=== PATIENT | female | born 1980 | race Caucasian/White ===

== ENCOUNTER 2020-04-10 11:39 | Inpatient (IN) ==
[2020-04-10] MEDS: LACTATED RINGERS 1,000 ML IV SCH ×2 (12:50→19:29)
[2020-04-10 14:05] LABS: Basophils % 0.3 % (0.0-0.8); Eosinophils % 0.3 % (0.00-10.9); Hemoglobin 12.4 GM/DL (12.0-16.0); Immature Granulocytes % 0.8 %; Lymphocytes # 1.5 10*3/uL (1.4-4.0); Lymphocytes % 12.9 % (21.3-54.2); Mean Corpuscular HGB Conc 31.8 GM/DL (32-36); Mean Corpuscular Volume 95.4 FL (87-102); Mean Platelet Volume 9.4 FL (9.6-12.0); Monocytes % 3.9 % (1.7-12.7); Neutrophils % 81.8 % (38.7-73.9); Platelet Count 236 T/CUMM (130-400); Red Blood Count 4.09 MC/CUMM (3.8-5.5)
[2020-04-10 14:17] LABS: Alanine Aminotransferase 12 U/L (13-56); Alkaline Phosphatase 91 U/L (45-117); Aspartate Amino Transferase 13 U/L (0-37); Bilirubin,Total < 0.39 MG/DL (0.2-1.0); Blood Urea Nitrogen 9 MG/DL (7-18); Estimated Glom Filtration Rate 139 ML/MIN; Glucose 74 MG/DL (74-106); Osmolality,Calculated 272.7 MOS/KG (273-304); Total Protein 7.2 G/DL (6.4-8.3); Uric Acid 4.4 MG/DL (2.6-6.0)
[2020-04-10] MEDS ORDERED: TERBUTALINE 1 MG/1 ML VIAL SUBCUT ONE (16:12)
[2020-04-10] MEDS ORDERED: ONDANSETRON 4 MG/2 ML VIAL IV PRN (17:12)
[2020-04-10] MEDS ORDERED: BUTORPHANOL 2 MG/ML VIAL IV PRN (17:12)
[2020-04-10] MEDS ORDERED: LACTATED RINGERS 250 ML IV ONE (17:12)
[2020-04-10] MEDS ORDERED: LACTATED RINGERS 500 ML IV PRN (17:12)
[2020-04-10] MEDS ORDERED: ACETAMINOPHEN 325 MG TABLET PO PRN (17:12)
[2020-04-11] MEDS: OXYTOCIN/LR 20 UNIT/1,000 ML BAG IV SCH ×3 (00:37→19:20)
[2020-04-11] MEDS ORDERED: CITRIC ACID/SODIUM CITRATE 30 ML UDCUP ONE (07:16)
[2020-04-11] MEDS ORDERED: NALOXONE 0.4 MG/ML VIAL IV PRN (09:04)
[2020-04-11] MEDS ORDERED: diphenhydrAMINE 50 MG/1 ML VIAL IV PRN ×2 (09:04)
[2020-04-11] MEDS ORDERED: FAMOTIDINE 20 MG/2 ML VIAL IV ONE (09:06)
[2020-04-11] MEDS ORDERED: CITRIC ACID/SODIUM CITRATE 30 ML UDCUP PO ONE (09:06)
[2020-04-11] MEDS ORDERED: ePHEDrine 50 MG/ML VIAL ONE (09:09)
[2020-04-11] MEDS ORDERED: fentaNYL 2 MCG/ROPIV 0.2% EPID 100 ML EPIDURAL ONE (09:10)
[2020-04-11] MEDS: LACTATED RINGERS 1,000 ML IV SCH ×2 (09:13→12:15)
[2020-04-11] MEDS ORDERED: fentaNYL 2 MCG/ROPIV 0.2% EPID 100 ML EPIDURAL SCH (09:30)
[2020-04-11 11:56] LABS: Bacteria,Urine Occasional /HPF (Few); Bilirubin,Urine Negative (Negative); Blood, Urine Negative (Negative); Glucose,Urine (UA) Negative (Negative); Ketones,Urine 5 mg/dL (Negative); Mucus,Urine Occasional /LPF (Occasional); Nitrite,Urine Negative (Negative); Protein,Urine Negative; RBC,Urine 1 /HPF (0-4); Squamous Epithelial Cell,Urine Occasional /HPF (0-10); Urine Appearance CLEAR (Clear); Urine Color Yellow (Yellow); Urine Specific Gravity 1.012 (1.001-1.035); Urine Urobilinogen < 2.0 EU/DL (0.2-1.0); WBC,Urine 1 /HPF (0-6)
[2020-04-11] MEDS: ePHEDrine 50 MG/ML VIAL IV PRN ×2 (11:58→11:59)
[2020-04-11 14:28] LABS: Cord Venous Blood HCO3 21.6 MMOL/L
[2020-04-12] MEDS ORDERED: LANOLIN 50% CREAM 0.3 OZ TUBE TOP PRN (00:53)
[2020-04-12] MEDS ORDERED: BENZOCAINE 20%/MENTHOL 0.5% SPRAY 56 GM CAN TOP PRN (00:53)
[2020-04-12] MEDS ORDERED: WITCH HAZEL PADS 100/JAR TOP PRN (00:53)
[2020-04-12] MEDS ORDERED: oxyCODONE/ACETAMINOPHEN 5-325 MG TABLET PO PRN ×2 (00:53)
[2020-04-12] MEDS ORDERED: DIPH/TET/ACEL PERT BOOSTER VACCINE 0.5 ML VIAL IM ONE (00:53)
[2020-04-12] MEDS ORDERED: BISACODYL 10 MG SUPP RECTAL PRN (00:53)
[2020-04-12] MEDS ORDERED: HYDROCORTISONE 2.5% RECTAL CREAM 30 GM TUBE TOP PRN (00:53)
[2020-04-12] MEDS ORDERED: RHO(D) IMMUNE GLOBULIN 300 MCG SYRINGE IM ONE (00:53)
[2020-04-12] MEDS ORDERED: ONDANSETRON 4 MG/2 ML VIAL IV PRN (00:53)
[2020-04-12] MEDS ORDERED: MEASLES/MUMPS/RUBELLA VACCINE 0.5 ML VIAL SUBCUT ONE (00:53)
[2020-04-12] MEDS: IBUPROFEN 800 MG TABLET PO PRN (03:44)
[2020-04-12 03:58] LABS: Basophils % 0.2 % (0.0-0.8); Eosinophils # 0.1 10*3/uL (0.0-0.87); Eosinophils % 0.7 % (0.00-10.9); Hematocrit 33.9 VOL% (35.7-47.0); Hemoglobin 11.2 GM/DL (12.0-16.0); Immature Granulocytes % 0.9 %; Lymphocytes # 1.6 10*3/uL (1.4-4.0); Lymphocytes % 14.5 % (21.3-54.2); Mean Corpuscular Volume 93.4 FL (87-102); Monocytes % 4.8 % (1.7-12.7); Neutrophils % 78.9 % (38.7-73.9); Platelet Count 199 T/CUMM (130-400); Red Blood Count 3.63 MC/CUMM (3.8-5.5); Red Cell Distribution Width 13.9 % (9.3-17.3); White Blood Count 11.3 T/CUMM (4-12)
[2020-04-12] MEDS ORDERED: SIMETHICONE CHEW 80 MG TABLET PO PRN (07:52)
[2020-04-12] MEDS: DOCUSATE SODIUM 100 MG CAPSULE PO SCH ×2 (09:17→20:56)
[2020-04-13 07:30] VITALS: BP 130/65
[2020-04-13] MEDS: IBUPROFEN 800 MG TABLET PO PRN (07:48)
[2020-04-13] MEDS: DOCUSATE SODIUM 100 MG CAPSULE PO SCH (09:52)
[2020-04-13] MEDS ORDERED: INFLUENZA VIRUS VACCINE 0.5 ML SYRINGE IM ONE (10:10)
== END 2020-04-13 10:50 | disposition home or self-care (01) | DRG 807 ==
LOC: N.LDOUT 11:39 → N.LD 11:41 → N.OB 04-11 20:00
PROVIDERS: ADMIT Obstetrics & Gynecology; ATTEND Obstetrics & Gynecology